=== PATIENT | female | born 1965 | race Caucasian/White ===

== ENCOUNTER 2020-06-22 17:19 | Inpatient (IN) | payer MEDICAID, OTHER ==
[~2020-06-22] VITALS: Ht 157.5 cm; Wt 85.8 kg
[2020-06-22] MEDS ORDERED: SODIUM CHLORIDE 0.9% 1,000 ML IVB ONE (17:45)
[2020-06-22] MEDS ORDERED: ONDANSETRON HCL 4 MG/2 ML VIAL IV ONE (17:45)
[2020-06-22] MEDS ORDERED: KETOROLAC TROMETH 30 MG/ML 1ML VIAL IV ONE (17:45)
[2020-06-22 19:05] LABS: Basophils # (auto) 0 10 ^3/uL (0-0.2); Basophils % (auto) 0.2 % (0.0-2.0); Eosinophils # (auto) 0.1 10 ^3/uL (0-0.8); Eosinophils % (auto) 0.6 % (0.0-7.0); Hematocrit 46.2 % (36.0-46.0); Hemoglobin 15.5 g/dL (12.2-16.2); Lymphocytes # (auto) 2.1 10 ^3/uL (0.4-5.4); Lymphocytes % (auto) 14.4 % (10.0-50.0); Mean Corpuscular Hemoglobin 31.3 pg (28.0-32.0); Mean Corpuscular Hgb Conc. 33.6 g/dL (32.0-36.0); Mean Corpuscular Volume 92.9 fL (80.0-100.0); Monocytes # (auto) 1.6 10 ^3/uL (0-1.3); Monocytes % (auto) 11.1 % (0.0-12.0); Neutrophils # (auto) 10.6 10 ^3/uL (1.6-8.6); Neutrophils % (auto) 73.7 % (37.0-80.0); Nucleated Red Blood Cells % 0.1 %; Red Blood Cells 4.97 10^6/uL (4.0-5.20); Red Cell Distribution Width 13.7 % (11.8-14.3); White Blood Cell 14.4 10^3/uL (4.4-10.8)
[2020-06-22 19:15] LABS: Urine Bacteria NONE SEEN /hpf (None Seen); Urine Blood TRACE /uL (Negative); Urine Specific Gravity 1.027 (1.001-1.035); Urine WBC 32 /hpf (0 - 5)
[2020-06-22 19:22] LABS: Albumin 3.7 g/dL (3.4-5.0); Calcium 9.8 mg/dL (8.5-10.1); Potassium 4.1 mmol/L (3.5-5.1)
[2020-06-22 19:26] LABS: BUN/Creatinine Ratio 23.8; Bilirubin, Total 0.6 mg/dL (0.2-1.0); Total Protein 7.5 g/dL (6.4-8.2)
[2020-06-22] MEDS ORDERED: SODIUM CHLORIDE 0.9% 1,000 ML IV ONE (19:30)
[2020-06-22] MEDS ORDERED: InsuLIN REG 1unit/0.01ml Soln (100units/ml) IV ONE (19:30)
[2020-06-22] MEDS ORDERED: levoFLOXacin 500MG 100 ML IV ONE (19:30)
[2020-06-22] MEDS ORDERED: DEXTROSE (50%) 50ML SYRG IV PRN (21:00)
[2020-06-22] MEDS ORDERED: TEMAZEPAM 15 MG CAP PO PRN (21:00)
[2020-06-22] MEDS ORDERED: HYDROcodone-ACET 5/325MG TAB PO PRN (21:00)
[2020-06-22] MEDS ORDERED: ACETAMINOPHEN 325 MG TAB PO PRN (21:00)
[2020-06-22] MEDS ORDERED: ONDANSETRON HCL 4 MG/2 ML VIAL IV PRN (21:00)
[2020-06-22] MEDS: SODIUM CHLORIDE 0.9% 1,000 ML IV SCH (21:16)
[2020-06-22] MEDS: MORPHINE SULFATE INJECTION 2 MG/ML SYRG IV PRN (21:57)
[2020-06-22 22:00] VITALS: BP 100/53
[2020-06-22 22:40] VITALS: BP 100/55
[2020-06-22] MEDS: FAMOTIDINE 20 MG TAB PO SCH (22:50)
[2020-06-23] MEDS: ACCU-CHEK COMFORT CURVE STRIP VI SCH ×6 (01:14→20:17)
[2020-06-23] MEDS ORDERED: PNEUMOCOCCAL VACC POLYS 25 MCG/0.5 ML VIAL IM ONE (01:15)
[2020-06-23] MEDS: InsuLIN REG 1unit/0.01ml Soln (100units/ml) SC SCH ×6 (01:16→20:05)
[2020-06-23 02:08] LABS: Basophils # (auto) 0 10 ^3/uL (0-0.2); Basophils % (auto) 0.4 % (0.0-2.0); Eosinophils # (auto) 0.2 10 ^3/uL (0-0.8); Eosinophils % (auto) 1.6 % (0.0-7.0); Hemoglobin 12.7 g/dL (12.2-16.2); Lymphocytes % (auto) 31.9 % (10.0-50.0); Mean Corpuscular Hemoglobin 31.1 pg (28.0-32.0); Mean Corpuscular Hgb Conc. 33.3 g/dL (32.0-36.0); Mean Corpuscular Volume 93.5 fL (80.0-100.0); Monocytes # (auto) 1.1 10 ^3/uL (0-1.3); Monocytes % (auto) 11.5 % (0.0-12.0); Neutrophils # (auto) 5.2 10 ^3/uL (1.6-8.6); Neutrophils % (auto) 54.6 % (37.0-80.0); Nucleated Red Blood Cells % 0.1 %; Red Blood Cells 4.07 10^6/uL (4.0-5.20); Red Cell Distribution Width 13.8 % (11.8-14.3); White Blood Cell 9.4 10^3/uL (4.4-10.8)
[2020-06-23 02:27] LABS: Albumin 2.7 g/dL (3.4-5.0); BUN/Creatinine Ratio 23.5; Calcium 8.1 mg/dL (8.5-10.1); Potassium 3.9 mmol/L (3.5-5.1)
[2020-06-23 02:30] LABS: Bilirubin, Total 0.4 mg/dL (0.2-1.0); Total Protein 5.8 g/dL (6.4-8.2)
[2020-06-23] MEDS ORDERED: METF-370 PO (03:24)
[2020-06-23] MEDS ORDERED: IBUP800T27 PO (03:24)
[2020-06-23] MEDS ORDERED: GLIP10TA9 PO (03:24)
[2020-06-23] MEDS ORDERED: BACL10TA PO (03:24)
[2020-06-23] MEDS ORDERED: ATOR10TA PO (03:24)
[2020-06-23] MEDS ORDERED: TRAM50TA2 PO (03:24)
[2020-06-23 05:00] VITALS: BP 99/59
[2020-06-23] MEDS: SODIUM CHLORIDE 0.9% 1,000 ML IV SCH ×2 (08:15→20:34)
[2020-06-23 09:00] VITALS: BP 87/57
[2020-06-23] MEDS: levoFLOXacin 500MG 100 ML IV SCH (09:27)
[2020-06-23] MEDS: FAMOTIDINE 20 MG TAB PO SCH ×2 (09:27→22:11)
[2020-06-23] MEDS ORDERED: INSULIN LISPRO (HUMAN) 100 UNITS/ML ML SC ONE (11:00)
[2020-06-23 13:00] VITALS: BP 103/49
[2020-06-23] MEDS ORDERED: ERGOCALCIFEROL 50,000 UNIT(1.25MG) CAP PO SCH (13:15)
[2020-06-23] MEDS: ALPRAZolam 0.5 MG TAB PO PRN (16:30)
[2020-06-23 17:00] VITALS: BP 128/81
[2020-06-23 22:12] VITALS: BP 109/66
[2020-06-23] MEDS: INSULIN LANTUS (GLARGINE) 1 /0.01ml (100units/ml) SC SCH (22:16)
[2020-06-23] MEDS: MORPHINE SULFATE INJECTION 2 MG/ML SYRG IV PRN (22:48)
[2020-06-24] MEDS: InsuLIN REG 1unit/0.01ml Soln (100units/ml) SC SCH ×7 (00:29→23:23)
[2020-06-24] MEDS: ACCU-CHEK COMFORT CURVE STRIP VI SCH ×7 (04:27→23:37)
[2020-06-24 05:18] VITALS: BP 100/58
[2020-06-24 05:24] LABS: Basophils # (auto) 0 10 ^3/uL (0-0.2); Basophils % (auto) 0.5 % (0.0-2.0); Eosinophils # (auto) 0.3 10 ^3/uL (0-0.8); Eosinophils % (auto) 3.7 % (0.0-7.0); Hematocrit 37.6 % (36.0-46.0); Hemoglobin 12.7 g/dL (12.2-16.2); Lymphocytes # (auto) 3.4 10 ^3/uL (0.4-5.4); Lymphocytes % (auto) 42.2 % (10.0-50.0); Mean Corpuscular Hemoglobin 31.3 pg (28.0-32.0); Mean Corpuscular Hgb Conc. 33.8 g/dL (32.0-36.0); Mean Corpuscular Volume 92.8 fL (80.0-100.0); Monocytes # (auto) 0.8 10 ^3/uL (0-1.3); Monocytes % (auto) 9.8 % (0.0-12.0); Neutrophils # (auto) 3.5 10 ^3/uL (1.6-8.6); Neutrophils % (auto) 43.8 % (37.0-80.0); Nucleated Red Blood Cells % 0.2 %; Red Blood Cells 4.06 10^6/uL (4.0-5.20); Red Cell Distribution Width 13.7 % (11.8-14.3)
[2020-06-24 05:55] LABS: Calcium 8.3 mg/dL (8.5-10.1); Potassium 3.1 mmol/L (3.5-5.1)
[2020-06-24 05:58] LABS: BUN/Creatinine Ratio 21.3
[2020-06-24] MEDS ORDERED: POTASSIUM CHL 20 Meq TABLET PO ONE ×2 (07:00→16:30)
[2020-06-24] MEDS: SODIUM CHLORIDE 0.9% 1,000 ML IV SCH ×2 (08:40→20:11)
[2020-06-24 09:02] VITALS: BP 132/73
[2020-06-24] MEDS: FAMOTIDINE 20 MG TAB PO SCH ×2 (09:32→23:16)
[2020-06-24] MEDS: levoFLOXacin 500MG 100 ML IV SCH (09:32)
[2020-06-24] MEDS: INSULIN LANTUS (GLARGINE) 1 /0.01ml (100units/ml) SC SCH ×2 (09:33→23:23)
[2020-06-24] MEDS: MORPHINE SULFATE INJECTION 2 MG/ML SYRG IV PRN (10:47)
[2020-06-24 12:00] VITALS: BP 110/68
[2020-06-24] MEDS ORDERED: FLUCONAZOLE 100 MG TAB PO ONE (13:45)
[2020-06-24 17:13] VITALS: BP 120/88
[2020-06-24 22:00] VITALS: BP 103/64
[2020-06-25] MEDS: ACCU-CHEK COMFORT CURVE STRIP VI SCH ×4 (04:00→16:21)
[2020-06-25] MEDS: InsuLIN REG 1unit/0.01ml Soln (100units/ml) SC SCH ×4 (04:00→16:23)
[2020-06-25 05:00] VITALS: BP 104/67
[2020-06-25] MEDS: SODIUM CHLORIDE 0.9% 1,000 ML IV SCH (05:04)
[2020-06-25 09:08] VITALS: BP 106/65
[2020-06-25] MEDS: FAMOTIDINE 20 MG TAB PO SCH (09:08)
[2020-06-25] MEDS: levoFLOXacin 500MG 100 ML IV SCH (09:08)
[2020-06-25] MEDS ORDERED: FLUCONAZOLE 100 MG TAB PO SCH (10:00)
[2020-06-25] MEDS: INSULIN LANTUS (GLARGINE) 1 /0.01ml (100units/ml) SC SCH (10:05)
[2020-06-25] MEDS: ALPRAZolam 0.5 MG TAB PO PRN (10:28)
[2020-06-25] MEDS ORDERED: POTASSIUM CHL 20 Meq TABLET PO ONE (12:45)
[2020-06-25 13:00] VITALS: BP 115/74
[2020-06-25] MEDS ORDERED: ATOR20TA50 PO (13:19)
[2020-06-25] MEDS ORDERED: ERTU15TA PO (13:19)
[2020-06-25] MEDS ORDERED: LEVO500T31 PO (13:19)
[2020-06-25] MEDS ORDERED: ERGO1CAP23 PO (13:19)
[2020-06-25] MEDS ORDERED: INSU1INJ19 SC (13:19)
[2020-06-25] MEDS ORDERED: FLUC200T50 PO (13:19)
[2020-06-25 15:53] VITALS: BP 115/74
[2020-06-25 17:00] VITALS: BP 110/73
[2020-06-25] MEDS ORDERED: PNEUMOCOCCAL VACC POLYS 25 MCG/0.5 ML VIAL IM ONE (17:45)
== END 2020-06-25 18:01 | disposition home or self-care (01) | DRG 463 ==
LOC: ER 17:19 → OVERFLOW 20:50 → WEST WING 22:40
PROVIDERS: ADMIT Nurse Practitioner; ATTEND Internal Medicine
DX: N10 Acute pyelonephritis (principal); E11.10 Type 2 diabetes mellitus with ketoacidosis without coma; E55.9 Vitamin D deficiency, unspecified; Z20.822 Contact with and (suspected) exposure to COVID-19; N20.0 Calculus of kidney; E66.9 Obesity, unspecified; F17.210 Nicotine dependence, cigarettes, uncomplicated; Z90.710 Acquired absence of both cervix and uterus; Z68.34 Body mass index [BMI] 34.0-34.9, adult; Z88.0 Allergy status to penicillin; Z90.49 Acquired absence of other specified parts of digestive tract
CPT/HCPCS: 36415; 74176; 76775; 80048; 80053; 81001; 82010; 82306; 82962; 83036; 83690; 84132; 84443; 85025; 87086; 87088; 87186; 87426; 93005; 96361; 96365; 96375; G0378; J1815; J1885; J1956; J2405